=== PATIENT | female | born 1995 | race Caucasian/White ===

== ENCOUNTER 2017-09-23 16:20 | Emergency (ER) | payer MEDICAID ==
[~2017-09-23] VITALS: Ht 157.5 cm; Wt 63.6 kg
[~2017-09-23 16:20] MED LIST: MEDR150V IM
[2017-09-23 19:59] VITALS: BP 125/75
== END 2017-09-23 20:36 | disposition home or self-care (01) ==
LOC: EMS 16:24
DX: O03.9 Complete or unspecified spontaneous abortion without complication (principal); Z3A.00 Weeks of gestation of pregnancy not specified
CPT/HCPCS: 99283